=== PATIENT | male | born 1995 | race Caucasian/White ===

== ENCOUNTER 2019-07-09 09:30 | Observation (INO) ==
[2019-07-09] MEDS ORDERED: 0.9 % Sodium Chloride 1,000 ML IVC ONE ×3 (10:10→12:52)
[2019-07-09] MEDS ORDERED: Promethazine 25 MG in 0.9 % Sodium Chloride 50 ML IVPB ONE (10:11)
[2019-07-09] MEDS ORDERED: *HR* FentaNYL (PF) 100 MCG/2 ML VIAL IVP ONE (10:11)
[2019-07-09] MEDS ORDERED: Isovue-370 500 ML BOTTLE IVP ONE (10:12)
[2019-07-09 10:46] LABS: Basophils % 0.2 %; Eosinophils % 0.1 %; Hemoglobin 14.8 g/dL (12.9-16.9); Immature Granulocytes % 0.6 % (0-4); Lymphocytes # 2.2 K/mcL (0.6-4.6); Lymphocytes % 12.1 %; Mean Corpuscular HGB Conc 34.4 g/dL (31.6-35.5); Mean Corpuscular Hemoglobin 25.2 pg (28.0-33.3); Mean Corpuscular Volume 73.1 fL (83.0-100.0); Mean Platelet Volume 8.8 fL (9.4-12.4); Monocytes # 0.8 K/mcL (0.0-1.3); Monocytes % 4.5 %; Neutrophils # 14.8 K/mcL (1.6-8.9); Platelet Count 353 K/mcL (140-400); Red Blood Count 5.88 M/mcL (4.19-5.50); Red Cell Distribution Width 13.3 % (11.5-14.5); Segmented Neutrophils % 82.5 %; White Blood Count 17.9 K/mcL (4.3-11.1)
[2019-07-09 10:51] LABS: Prothrombin Time 11.9 Seconds (9.4-12.1)
[2019-07-09 10:54] LABS: Activated Partial Thrombo Time 34.1 Seconds (26.0-36.0)
[2019-07-09 11:03] LABS: Alanine Aminotransferase 43 Units/L (7-52); Albumin 4.8 g/dL (3.5-5.7); Albumin/Globulin Ratio 1.5 (1.1-2.2); Alkaline Phosphatase 60 Units/L (34-104); Amylase 25 Units/L (29-103); Aspartate Amino Transferase 23 Units/L (13-39); BUN/Creatinine Ratio 16 (6-26); Bilirubin,Direct 0.1 mg/dL (0.0-0.2); Bilirubin,Indirect 0.2 mg/dL (0.0-1.0); Bilirubin,Total 0.3 mg/dL (0.3-1.0); Blood Urea Nitrogen 15 mg/dL (6-20); Calcium 9.7 mg/dL (8.6-10.3); Carbon Dioxide 21 mEq/L (23-29); Chloride 100 mEq/L (98-107); Globulin 3.2 g/dL (2.4-3.5); Glucose 168 mg/dL (70-105); Lipase 17 Units/L (11-82); Osmolality,Calculated 289 (280-300); Sodium 137 mEq/L (136-145); eGFR For African Americans > 60 (> 60); eGFR For Non-African Americans > 60 (> 60)
[2019-07-09 11:33] LABS: Bilirubin,Urine Negative (Negative); Blood,Urine Large (Negative); Clarity,Urine Cloudy (Clear); Color,Urine Dark Yellow (Yellow); Glucose,Urine (UA) 100 mg/dL (Normal); Ketones,Urine 15 mg/dL (Negative); Leukocyte Esterase,Urine Negative (Negative); Nitrite,Urine Negative (Negative); PH,Urine 5.5 pH Units (5.0-8.0); Protein,Urine 100 mg/dL (Neg-Trace); Specific Gravity,Urine 1.028 (1.010-1.025); Urobilinogen,Urine Normal (Normal)
[2019-07-09 11:39] LABS: Bacteria,Urine None Seen per hpf (None-Few); Hyaline Casts,Urine None Seen per lpf (None-Few); RBC,Urine TNTC per hpf (0-3); Squamous Epithelial Cell,Urine Few per lpf (None-Few)
[2019-07-09] MEDS ORDERED: Metoclopramide 10 MG/2 ML VIAL IVP ONE (12:17)
[2019-07-09] MEDS ORDERED: Ondansetron 4 MG/2 ML VIAL IVP ONE (13:43)
[2019-07-09] MEDS ORDERED: Albuterol 2.5 MG/3 ML NEBULIZER IH STA (13:49)
[2019-07-09] MEDS ORDERED: Naloxone 0.4 MG/ML INJ IVP PRN (14:14)
[2019-07-09] MEDS ORDERED: Ketorolac 30 MG/ML VIAL IVP PRN (14:32)
[2019-07-09] MEDS: 0.9 % Sodium Chloride 1,000 ML IVC SCH (16:58)
[2019-07-09] MEDS: Ondansetron 4 MG/2 ML VIAL IVP PRN (20:27)
[2019-07-09] MEDS: hydrOXYzine pamoate 25 MG CAPSULE PO SCH (20:27)
[2019-07-09] MEDS: FLUoxetine 20 MG CAPSULE PO SCH (20:27)
[2019-07-10] MEDS: 0.9 % Sodium Chloride 1,000 ML IVC SCH ×3 (00:34→11:50)
[2019-07-10 05:08] LABS: Basophils % 0.4 %; Eosinophils % 0.6 %; Hematocrit 38.1 % (37.5-50.1); Immature Granulocytes % 0.2 % (0-4); Lymphocytes % 30.9 %; Mean Corpuscular HGB Conc 32.3 g/dL (31.6-35.5); Mean Corpuscular Hemoglobin 24.8 pg (28.0-33.3); Mean Corpuscular Volume 76.8 fL (83.0-100.0); Mean Platelet Volume 8.5 fL (9.4-12.4); Monocytes % 8.2 %; Platelet Count 275 K/mcL (140-400); Red Blood Count 4.96 M/mcL (4.19-5.50); Red Cell Distribution Width 13.6 % (11.5-14.5); Segmented Neutrophils % 59.7 %; White Blood Count 10.6 K/mcL (4.3-11.1)
[2019-07-10 05:09] LABS: Eosinophils # 0.1 K/mcL (0.0-0.6); Lymphocytes # 3.3 K/mcL (0.6-4.6); Monocytes # 0.9 K/mcL (0.0-1.3); Neutrophils # 6.3 K/mcL (1.6-8.9)
[2019-07-10 05:26] LABS: BUN/Creatinine Ratio 19 (6-26); Blood Urea Nitrogen 12 mg/dL (6-20); Calcium 8.6 mg/dL (8.6-10.3); Carbon Dioxide 22 mEq/L (23-29); Chloride 108 mEq/L (98-107); Glucose 151 mg/dL (70-105); Magnesium 1.7 mg/dL (1.6-2.6); Osmolality,Calculated 289 (280-300); Potassium 4.1 mEq/L (3.5-5.1); Sodium 138 mEq/L (136-145); eGFR For African Americans > 60 (> 60); eGFR For Non-African Americans > 60 (> 60)
[2019-07-10 05:32] LABS: Hemoglobin 12.3 g/dL (12.9-16.9)
[2019-07-10] MEDS: FLUoxetine 20 MG CAPSULE PO SCH ×2 (10:04→20:21)
[2019-07-10] MEDS: hydrOXYzine pamoate 25 MG CAPSULE PO SCH ×2 (10:04→20:21)
[2019-07-10] MEDS: *HR* Promethazine 25 MG/ML VIAL IVP PRN ×2 (11:36→17:12)
[2019-07-10] MEDS: Ondansetron 4 MG/2 ML VIAL IVP PRN ×2 (14:39→22:03)
[2019-07-10] MEDS ORDERED: Isovue-300 50ML VIAL ONE (22:35)
[2019-07-10] MEDS ORDERED: Acetaminophen IV 1,000 MG/100 ML INFUS..BTL ONE (22:57)
[2019-07-10] MEDS ORDERED: Famotidine 20 MG/2 ML VIAL ONE (22:58)
[2019-07-10] MEDS ORDERED: Dexamethasone 4 MG/ML VIAL ONE (22:59)
[2019-07-10] MEDS ORDERED: Ondansetron 4 MG/2 ML VIAL ONE (22:59)
[2019-07-10] MEDS ORDERED: *HR* Midazolam HCl 2 MG/2 ML VIAL ONE (22:59)
[2019-07-10] MEDS ORDERED: *HR* FentaNYL (PF) 100 MCG/2 ML VIAL ONE (22:59)
[2019-07-10] MEDS ORDERED: Lidocaine -MPF 2% 2 ML VIAL ONE (22:59)
[2019-07-10] MEDS ORDERED: *HR* Remifentanil 2 MG VIAL IVP ONE (23:15)
[2019-07-11] MEDS: *HR* Promethazine 25 MG/ML VIAL IVP PRN (00:52)
[2019-07-11] MEDS ORDERED: Naloxone 0.4 MG/ML INJ IVP PRN (00:53)
[2019-07-11] MEDS ORDERED: *HR* Promethazine 25 MG/ML VIAL IVP PRN (00:53)
[2019-07-11] MEDS ORDERED: Ondansetron 4 MG/2 ML VIAL IVP PRN (00:53)
[2019-07-11] MEDS ORDERED: Ketorolac 30 MG/ML VIAL IVP PRN (00:53)
[2019-07-11 02:30] VITALS: BP 139/85
[2019-07-11] MEDS ORDERED: hydrOXYzine pamoate 25 MG CAPSULE PO SCH (09:00)
[2019-07-11] MEDS ORDERED: FLUoxetine 20 MG CAPSULE PO SCH (09:00)
[2019-07-16 09:35] LABS: Calculi Mass 16 mg
== END 2019-07-11 02:55 | disposition home or self-care (01) ==
LOC: 3ANU 09:30 → EMEROOARM 09:30 → SUATTDRO 14:15 → 3ANU 15:06
PROVIDERS: ADMIT Student in an Organized Health Care Education/Training Program; ATTEND Internal Medicine